=== PATIENT | male | born 1960 | race Caucasian/White ===

== ENCOUNTER → 2018-08-18 13:00 | Outpatient (CLI) | payer OTHER, SELFPAY ==
--- NOTE | 2018-08-18 13:28 | CT_ITS ---
CT lung screening EXAM: CT LUNG LOW DOSE WO CONTRAST HISTORY: 40 pack-year smoking history ITS.REASON: H/O NICOTINE DEPENDENCE ORDERING PHYSICIAN: Zhao Hudson MD PATIENT AGE: 57 years COMPARISON: None TECHNIQUE: The exam was performed on a GE Light Speed [address] scanner using 2.90 mGy CTDI. A low dose helical CT CHEST was performed on a multi-detector scanner. All CT scans at the facility use one or more dose reduction, viz: automated exposure control, ma/kV adjustment per patient size (including targeted exams where dose is matched to indication, i.e. head), or iterative reconstruction technique. The LDCT was performed in a facility that meets the criteria for the screening program. Data regarding this exam was submitted to ACR which is an approved registry. The order for this exam indicates that it came as a result of a lung cancer screening counseling shard decision-making visit that included all the elements required of such a visit including smoking cessation. The radiologist interpreting this exam meets the CMS criteria for the LDCT lung cancer screening program. The exam is reported using the Lung-RADS classification scale and reported to the ACR registry. NOTE: This study was performed for the specific purposes of lung cancer screening and is not an alternative to diagnostic chest CT. RADIATION DOSE: CTDI vol(CT dose Index-volume) = 2.90mG DLP (Dose Length Product) = 108.78 mGcm FINDINGS: COPD with Centrilobular and paraseptal emphysematous changes are present. 10 mm nodular opacity in the minor fissure anteriorly have a plaque-like appearance but with some irregularity on its axial images. Fibrotic change right middle lobe. There is a 10 mm irregular nodular opacity in the left apex which may be related to pulmonary fibrotic change. Fibrotic changes present in the left upper lobe medially are calcified granuloma left upper lobe. Noncalcified nodule present in the lingula at 5 mm. Incidental coronary artery calcifications. Isodensity left kidney which may be due to renal cyst and 19 mm and may be confirmed with ultrasound. IMPRESSION: 1. Lung RADS Category: 4A, mildly suspicious regarding nodular density in the right minor fissure with some irregularity and the 10 mm nodule in the left apex which may be due to scar or developing nodule. 2. Other findings: COPD, centrilobular and paraseptal emphysema, coronary artery calcifications, possible left renal cyst RECOMMENDATIONS: [address] follow-up suggested without and with contrast
== END ==
PROVIDERS: PCP Family Medicine; Visit Provider Family Medicine
DX: Z12.2 Encounter for screening for malignant neoplasm of respiratory organs (principal); Z87.891 Personal history of nicotine dependence

== ENCOUNTER → 2018-09-30 14:18 | Outpatient (CLI) | payer OTHER, SELFPAY ==
--- NOTE | 2018-09-30 14:22 | US_ITS ---
US thyroid HISTORY: ITS.REASON: hypothyroid ORDERING PHYSICIAN: Marcos Meeks MD PATIENT AGE: 57 years Comparison: None FINDINGS: Right lobe: 3.3 x 1.1 x 1.1 cm. Mild heterogeneous echogenicity. 2 mm hypoechoic nodule is present in the mid polar region Left lobe: 3.2 x 1.2 x 1.4 cm. 3 mm hypoechoic nodule in the upper pole. There is heterogeneous echogenicity of the left lobe. Isthmus: Unremarkable IMPRESSION: Heterogeneous echogenicity of both lobes of the thyroid gland with small bilateral hypoechoic nodules which are low suspicion for malignancy
[2018-09-30 17:04] LABS: Free Thyroxine Index 2.2 ug/dL (5.93-13.13); T4 (Thyroxine) 6.7 ug/dl (4.7-13.3); Thyroid Stimulating Hormone 1.15 uIU/ml (0.358-3.740); Triiodothryronine (T3) Uptake 33 % (31-39)
[2018-10-03 03:14] LABS: Thyroid Peroxidase Antibodies 188 IU/mL (0-34)
[2018-10-05 06:22] LABS: Thyroid Stimulating Immunoglob 0.53 IU/L (0.00-0.55)
== END ==
PROVIDERS: PCP Family Medicine; Visit Provider Otolaryngology
DX: E01.0 Iodine-deficiency related diffuse (endemic) goiter (principal); E03.9 Hypothyroidism, unspecified
CPT/HCPCS: 36415; 76536; 82308; 84436; 84443; 84445; 84479; 86376

== ENCOUNTER → 2018-11-18 13:24 | Outpatient (CLI) | payer OTHER, SELFPAY ==
--- NOTE | 2018-11-18 13:49 | CT_ITS ---
CT chest wo/w con HISTORY: Follow-up lung nodules ITS.REASON: PULMONARY NODULES ORDERING PHYSICIAN: Zhao Hudson MD PATIENT AGE: 58 years COMPARISON: 08/18/2018 Technique: Contrast Used:75ml Optiray 350 Axial images were obtained without and with contrast infusion. Sagittal, and coronal reformatted images are also generated and reviewed. All CT scans at the facility use one or more dose reduction, viz: automated exposure control, ma/kV adjustment per patient size (including targeted exams where dose is matched to indication, i.e. head), or iterative reconstruction technique. FINDINGS: No mediastinal or hilar mass or adenopathy. There are coronary artery calcifications best detected on the unenhanced images. There are few scattered small mediastinal, axillary, and periportal lymph nodes not significantly changed. COPD with centrilobular emphysema and scattered areas of pulmonary fibrosis/scarring. New atelectatic changes are present in the right upper lobe medially. Previously noted nodular opacity in the right minor fissure region is not significantly changed. The irregular opacity in the left apex is unchanged. There is an 8 mm noncalcified nodule in the lingula which is unchanged. No new nodules are evident. No abnormal enhancement. 2 cm isodensity left kidney consistent with a renal cyst unchanged. IMPRESSION: 1. Overall no significant change. No change in the right minor fissure and left apical opacities which may be due to scarring. 2. COPD with centrilobular emphysema and scattered areas pulmonary fibrosis/scarring unchanged Recommend 9 month follow-up to confirm one-year stability.
[2018-11-18 13:54] LABS: Blood Urea Nitrogen 12 mg/dL (7-18); Creatinine,Serum 1.05 mg/dL (0.70-1.30); Estimated Glomerular Filt Rate 73 ml/min (>60); GFR (African American) 88 ML/MIN (>60)
== END ==
PROVIDERS: Family Medicine; PCP Family Medicine; Visit Provider Family Medicine
DX: R91.8 Other nonspecific abnormal finding of lung field (principal)
CPT/HCPCS: 36415; 71270; 82565; 84520; Q9967

== ENCOUNTER → 2018-11-29 11:01 | Outpatient (CLI) | payer OTHER, SELFPAY ==
--- NOTE | 2018-11-29 | CA_ITS ---
APPROVED REPORT Exam: Pharmacologic Technologist: Patti Meyers, Ht: 6 ft 1 in Wt: 196 lbs BSA: 2.13 m2 HR: 52 bpm BP: 129/67 mmHg Rhythm: Bradycardia Indications: Chest pain Medical History Medical History: Smoking Medications: Aspirin,,,,, Lexapro,,,,, Vitamin B12,,,,, Synthroid,,,,, Vitamin D3,,,,, ADVAIR,,,,, CloDIPINE,,,,, Cardiac Risk Factors: FHX of CAD Stress Test Details Test: LEXISCAN HR Resting HR: 51 bpm Max Heart Rate (APMHR): 163 bpm Max HR Achieved: 93 bpm Target HR (85% APMHR): 138 bpm % of APMHR: 57 Recovery HR: 74 bpm BP Resting BP: 129.0/67.0 mmHg Max BP: 147.0/86.0 mmHg Recovery BP: 133.0/77.0 mmHg ECG Clinical Exercise duration: 04:03 min Highest Stage Achieved: Exercise capacity: 1.0 METs Stress ECG Conclusion Symptoms: SOA,Malaise,back pain. No chest pain. Arrhythmias/Ectopy: one 1.9 second pause after lexiscan injection. ST-T changes: NS ST-T changes inferiorly and laterally. Unremarkable Lexiscan stress. Myoview images reported separately. Electronically signed by : Zach Dallas, 12/14/2018 11:46:13
--- NOTE | 2018-11-29 11:05 | CA_ITS ---
APPROVED REPORT EXAM: Comprehensive 2D, Doppler, and color-flow Echocardiogram Crane Man: Melia Kirk RDCS Ht: 6 ft 1 in Wt: 198lbs BSA: 2.14 BP: 123/83 mmHg Indications: Chest Pain, Shortness of Breath, Syncope Left Ventricle Left atrium is normal size, left ventricle is normal size, there is no concentric left ventricular hypertrophy, visually estimated ejection fraction 55% with no regional wall motion abnormality. Right Ventricle Right atrium and right ventricular normal size and contractility. Aortic Valve Aortic valve is minimally thickened and fibrosed. There is no aortic stenosis aortic insufficiency. Mitral Valve Mitral valve is grossly normal, there is mild mitral regurgitation Tricuspid Valve Tricuspid valve is grossly normal, there is mild tricuspid regurgitation Pulmonic Valve Pulmonic valve is poorly visualized. Great Vessels Aortic root is normal size. Pericardium No significant pericardial effusion noted. 2D Dimensions LVOT 1.90 cm (M/F) 1.5-2.5 M-Mode Dimensions LA Diam 3.60 cm (1.9-4.0) Ao Diam 3.20 cm (2.0-3.7) AV Cusp 1.50 cm (1.5-2.6) LV Diastology E/A Ratio 1.2 MED E' 10.30 (< 7 cm/sec) E'/MED E' Ratio 8.10 (>14) LAT E' 12.50 (<10 cm/sec) E/LAT E' Ratio 6.70 (>14) Mitral Valve MV E Max Solomon. 83.90 (40-130 cm/s) MV A Velocity 67.60 (40-130 cm/s) E/A Ratio 1.20 Tricuspid Valve TR P. Velocity 255.00 cm/s RAP Estimate 10.00 mmHg RVSP 36.00 mmHg Conclusion 1. Normal left ventricular size, preserved left ventricular systolic function, visually estimated ejection fraction 55% with no regional wall motion abnormality, diastolic parameters are within normal range. 2. Mild mitral and tricuspid regurgitation 3. No significant pericardial effusion noted. Electronically signed by : Jai Grande, 12/02/2018 14:03:32
--- NOTE | 2018-11-29 11:37 | NM_ITS ---
APPROVED REPORT Geriatric Aide: Bryaniscnatalya myocardial perfusion imaging Indication for the test: Chest pain, shortness of breath, palpitations, syncope, fatigue tobacco use and family history. Procedure: Patient received a 0.4 mg of intravenous Lexiscan, resting heart rate was 52 bpm resting blood pressure 129/67, with Lexiscan maximum heart rate achieved was 86 bpm which is less than 85% of the maximum predicted heart rate and the blood pressure was 132/82. Lexiscan patient complained of shortness of breath. Electrocardiogram: Resting electro cardiogram showed sinus bradycardia, with Lexiscan there is less than 1.[address] segment depression noted from the baseline EKG. The EKG portion of the Lexiscan Myoview is nondiagnostic. Cardiac stress and resting SPECT images: Cardiac stress and resting SPECT images were obtained using technetium 99 Myoview 29.6 mCi stress and 10.2 mCi at rest. Gated SPECT for analysis of segmental wall motion and calculation of the ejection fraction also done. Cardiac stress and resting SPECT images show uniform myocardial activity without segmental perfusion abnormality, computer derived ejection fraction is 64% with no regional wall motion abnormality, right ventricle is normal size and contractility. Conclusion 1. The EKG portion of the Lexiscan Myoview is nondiagnostic. 2. No scintigraphic evidence of reversible ischemia seen, computer derived ejection fraction is 64% with no regional wall motion abnormality, right ventricle is normal size and contractility. 3. Normal Lexiscan Myoview study. Electronically signed by : Jai Grande, 12/01/2018 17:23:43
== END ==
PROVIDERS: PCP Family Medicine; Visit Provider Internal Medicine
DX: I25.10 Atherosclerotic heart disease of native coronary artery without angina pectoris (principal); R07.89 Other chest pain; Z72.0 Tobacco use
CPT/HCPCS: 78452; 93017; 93306; A9502; J2785

== ENCOUNTER → 2019-01-05 16:32 | Outpatient (CLI) | payer OTHER, SELFPAY | PROVIDERS: PCP Family Medicine; Visit Provider Nurse Practitioner Family | DX: R53.83 Other fatigue (principal); R06.02 Shortness of breath | CPT/HCPCS: 95806 ==

== ENCOUNTER → 2020-09-04 15:07 | Outpatient (CLI) | payer OTHER, SELFPAY ==
--- NOTE | 2020-09-04 15:11 | CT_ITS ---
PROCEDURE: CT CHEST WO CON CLINICAL INDICATION: PULMONARY NODULE Follow-up pulmonary nodule COMPARISON: CT LUNGSCREEN CT lung screening from 08/18/[address] chest wo/w con from 11/18/2018 TECHNIQUE: Axial images obtained with sagittal and coronal reformats. All CT scans at the facility use one or more dose reduction, viz: automated exposure control, ma/kV adjustment per patient size (including targeted exams where dose is matched to indication, i.e. head), or iterative reconstruction technique. FINDINGS: HEART AND MEDIASTINAL STRUCTURES: No mediastinal or hilar mass or adenopathy. Coronary artery calcifications are present. LUNGS AND PLEURAL SPACES: COPD with centrilobular and paraseptal emphysematous changes. Scattered areas of scarring are once again noted. Nodular opacity in the right minor fissure appears stable. There is evidence of old granulomatous disease. Left apical nodule is stable. No lobar consolidation or collapse. 5 mm nodules present the left lower lobe anteriorly and appears stable. There is mild diffuse bronchial thickening. BONY STRUCTURES: Degenerative changes thoracic spine UPPER ABDOMEN: Unremarkable. ADDITIONAL FINDINGS: No other significant abnormalities. IMPRESSION: Overall stable CT appearance of the chest. COPD with centrilobular and paraseptal emphysematous changes and scattered areas of scarring . No change in the previously described nodular opacities Dictated by: Jace Coelho MD 09/09/2020 14:04 Jace Coelho MD in [place] 09/09/2020 14:04
== END ==
PROVIDERS: PCP Family Medicine; Visit Provider Nurse Practitioner
DX: R91.1 Solitary pulmonary nodule (principal)
CPT/HCPCS: 71250

== ENCOUNTER → 2021-10-31 14:09 | Outpatient (CLI) | payer OTHER, SELFPAY ==
--- NOTE | 2021-10-31 14:14 | CT_ITS ---
FINAL REPORT TECHNIQUE: After the administration of intravenous contrast, axial images through the chest were performed by computed tomography.This study was performed with techniques to keep radiation doses as low as reasonably achievable, (ALARA). Individualized dose reduction techniques using automated exposure control or adjustment of mA and/or kV according to the patient''s size were employed. CLINICAL HISTORY: cough, pulmonary nodule COMPARISON: September 04, 2020 FINDINGS: There is no axillary adenopathy. There is no hilar or mediastinal adenopathy. The heart size is normal. There is no pericardial or pleural effusion. Limited images of the upper abdomen demonstrate a partially visualized 3 cm benign-appearing cyst in the left kidney. There is biapical pleural and parenchymal scarring with a nodular component in the left apex, stable from prior. There is a nodular opacity along the anterior margin of the right minor fissure measuring 1.2 cm, also stable. No new infiltrate or nodule identified. IMPRESSION: Stable chest. Reviewed, Interpreted and Dictated by Alexis Conway MD Transcribed by Lorenzo Woodward Authenticated and [facility]
== END ==
PROVIDERS: PCP Nurse Practitioner; Visit Provider Nurse Practitioner
DX: R05.9 Cough, unspecified (principal); R91.1 Solitary pulmonary nodule
CPT/HCPCS: 71260

== ENCOUNTER → 2021-12-15 14:52 | Outpatient (CLI) | payer OTHER, SELFPAY ==
[2021-12-16 09:09] LABS: Adenovirus,PCR Not Detected (NotDetected); Bordetella Pertussis Not Detected (NotDetected); Chlamydophila Pneumoniae, PCR Not Detected (NotDetected); Coronavirus 229E Not Detected (NotDetected); Coronavirus NL63 Not Detected (NotDetected); Coronavirus OC43 Not Detected (NotDetected); Coronovirus HKU1,PCR Not Detected (NotDetected); Human Metapneumovirus Not Detected (NotDetected); Influenza A, PCR Not Detected (NotDetected); Influenza AH1, 2009 Not Detected (NotDetected); Influenza AH1, PCR Not Detected (NotDetected); Influenza AH3,PCR Not Detected (NotDetected); Influenza B, PCR Not Detected (NotDetected); Mycoplasma Pneumoniae, PCR Not Detected (NotDetected); Parainfluenza 1, PCR Not Detected (NotDetected); Parainfluenza 2, PCR Not Detected (NotDetected); Parainfluenza 3, PCR Not Detected (NotDetected); Parainfluenza 4, PCR Not Detected (NotDetected); Respiratory Syncytial Virus Not Detected (NotDetected); Rhinovirus/Enterovirus Not Detected (NotDetected)
[2021-12-17 02:39] LABS: Coronavirus 19, PCR Detected (NotDetected)
== END ==
PROVIDERS: PCP Nurse Practitioner; Visit Provider Nurse Practitioner
DX: U07.1 COVID-19 (principal)
CPT/HCPCS: 87581; 87632; 87798; C9803; U0003; U0005

== ENCOUNTER → 2022-07-14 11:12 | Outpatient (CLI) | payer OTHER, SELFPAY ==
--- NOTE | 2022-07-14 11:14 | CA_ITS ---
APPROVED REPORT EXAM: Comprehensive 2D, Doppler, and color-flow Echocardiogram Rake Operator: Florence Martinez CRT Ht: 6 ft 1 in Wt: 238lbs BSA: 2.32 BP: 110/80 mmHg Indications: COPD, Murmur, Shortness of Breath, Hyperlipidemia, smoker 2D Dimensions LVOT 1.90 cm (M/F) 1.5-2.5 LA Volume 51.40 mL LA Volume Index 21.70 mL/m2 (M/F) 16-34 M-Mode Dimensions RVDd 2.73 cm (0.9-2.6) LA Diam 3.65 cm (1.9-4.0) LVDd 4.49 cm (3.5-5.7) Ao Diam 4.48 cm (2.0-3.7) LVDs 3.17 cm (3.5-5.7) IVSd 2.01 cm (0.6-1.1) PWd 0.96 cm (0.6-1.1) EF (Teich) 56.50% EPSs 2.60 cm FS 29.40% EDV (Teich) 92.00 mL ESV (Teich) 40.00 mL LV Diastology E Decel Time 150.00 (160-240 msec) E/A Ratio 0.94 MED E' 6.60 (< 7 cm/sec) MED A' 8.60 cm/s E'/MED E' Ratio 9.61 (>14) LAT E' 10.80 (<10 cm/sec) LAT A' 10.40 cm/s E/LAT E' Ratio 5.87 (>14) Aortic Valve AO Peak GR. 9.40 mmHg Mitral Valve MV A Velocity 68.00 (40-130 cm/s) E/A Ratio 0.94 MV Decel. Time 150.00 (160-240 ms) Pulmonary Valve PV Peak Velocity 106.00 (50-150 cm/s) Tricuspid Valve TR P. Velocity 219.00 cm/s RAP Estimate 10.00 mmHg RVSP 29.10 mmHg Left Ventricle Left atrium is mildly enlarged, left ventricle normal size mild concentric left ventricular hypertrophy, estimated ejection fraction 55% with no regional wall motion abnormality, grade 1 diastolic dysfunction seen without tissue Doppler evidence of raise left atrial pressure. Right Ventricle Right atrium and right ventricular mildly enlarged with normal contractility. Aortic Valve Aortic valve is minimally thickened and fibrosed there is no aortic stenosis or aortic insufficiency. Mitral Valve Mitral valve is grossly normal, there is trace mitral regurgitation. Tricuspid Valve Tricuspid valve grossly normal, there is trace tricuspid regurgitation, tricuspid regurgitation jet velocity is inadequate for calculation of the right ventricular systolic pressure. Pulmonic Valve Pulmonic valve is poorly visualized. Great Vessels Aortic root is normal size. Inferior vena cava is poorly visualized. 1. Pericardium No significant pericardial effusion noted. Conclusion 1. Mild biatrial enlargement, normal left ventricular size, mild concentric left ventricular hypertrophy, estimated ejection fraction 55% with no regional wall motion abnormality, grade 1 diastolic dysfunction seen without tissue Doppler evidence of late left atrial pressure. 2. Mildly enlarged right ventricle with normal contractility. 3. Trace mitral and tricuspid regurgitation. 4. No significant pericardial effusion noted. 5. Inferior vena cava is poorly visualized. Electronically signed by : Jai Grande MD 07/15/2022 05:34:00
[2022-07-14 13:24] LABS: Alanine Aminotransferase 41 U/L (12-78); Albumin Level 3.9 g/dl (3.5-5.0); Albumin/Globulin Ratio 1.3 (1.1-1.8); Alkaline Phosphatase 91 U/L (38-126); Anion Gap 11.5 mEq/L (5-15); Aspartate Amino Transferase 31 U/L (17-59); Bilirubin,Total 0.6 mg/dl (0.2-1.3); Blood Urea Nitrogen 18 mg/dl (9-20); Calcium 8.5 mg/dl (8.4-10.2); Carbon Dioxide 26 mmol/L (22.0-30.0); Chloride 102 mmol/L (98-107); Chol/HDL Ratio 2.8 (1-3.5); Cholesterol 124 mg/dl (140-200); Estimated Glomerular Filt Rate 86 ml/min (>60); GFR (African American) 104 ML/MIN (>60); Glucose 90 mg/dl (74-100); HDL Cholesterol 45 mg/dl (40-60); Potassium 4.5 mmoL/L (3.5-5.1); Sodium 135 mmol/L (136-145); Total Protein,Serum 6.9 g/dl (6.3-8.2); Triglycerides 114 mg/dl (30-150); VLDL Cholesterol 23 mg/dL (0-40)
[2022-07-14 13:40] LABS: Free T4 (Free Thyroxine) 0.87 ng/dl (0.78-2.19)
[2022-07-14 13:54] LABS: Thyroid Stimulating Hormone < 0.02 uIU/mL (0.465-4.68)
[2022-07-14 14:13] LABS: Vitamin B12 436 pg/mL (239-931)
== END ==
PROVIDERS: PCP Family Medicine; Visit Provider Nurse Practitioner
DX: R01.1 Cardiac murmur, unspecified (principal); E03.9 Hypothyroidism, unspecified; E53.8 Deficiency of other specified B group vitamins; E55.9 Vitamin D deficiency, unspecified; E78.5 Hyperlipidemia, unspecified; F41.8 Other specified anxiety disorders; K21.9 Gastro-esophageal reflux disease without esophagitis
CPT/HCPCS: 36415; 80053; 80061; 82306; 82607; 83036; 84439; 84443; 93306

== ENCOUNTER → 2022-07-20 12:45 | Outpatient (CLI) | payer OTHER, SELFPAY ==
--- NOTE | 2022-07-20 13:25 | PC.NURSE ---
PFT and 6 Minute Walk Test completed without incident. Albuterol 0.083% given via HHN, per protocol, Pt tolerated tx well.
== END ==
PROVIDERS: PCP Family Medicine; Visit Provider Nurse Practitioner Family
DX: R06.02 Shortness of breath (principal)
CPT/HCPCS: 94060; 94618; 94726; 94729

== ENCOUNTER → 2022-07-27 07:59 | Outpatient (CLI) | payer OTHER, SELFPAY ==
[2022-07-27 08:45] VITALS: BP 136/79; PULSE 56; RESP 18; O2SAT 96
[2022-07-27 09:00] VITALS: BP 129/62; PULSE 67; RESP 18; O2SAT 94
== END ==
PROVIDERS: PCP Family Medicine; Visit Provider Nurse Practitioner Family
DX: R06.02 Shortness of breath (principal); I20.8 Other forms of angina pectoris; E78.5 Hyperlipidemia, unspecified; Z72.0 Tobacco use
CPT/HCPCS: 75574; Q9967

== ENCOUNTER → 2023-01-25 09:49 | Outpatient (CLI) | payer OTHER, SELFPAY ==
[2023-01-25 18:31] LABS: Basophils # 0.1 K/mm3 (0-0.2); Eosinophils # 0.2 K/mm3 (0.0-0.4); Eosinophils % 3.3 % (0.1-12.0); Hematocrit 43.8 % (42.0-52.0); Hemoglobin 13.6 g/dL (14.1-18.0); Lymphocytes # 1.8 K/mm3 (0.7-4.5); Lymphocytes % 29.9 % (10-50); Mean Corpuscular Hemoglobin 28.1 pg (27.0-31.2); Mean Corpuscular Volume 90.4 fl (80-94); Monocytes # 0.3 K/mm3 (0.1-1.0); Monocytes % 5.4 % (1.7-9.3); Neutrophils # 3.5 K/mm3 (1.8-7.8); Neutrophils % 60.4 % (37.0-80.0); Platelet Count 278 K/mm3 (142-424); Red Blood Count 4.85 M/mm3 (4.60-6.20); Red Cell Distribution Width 15.3 % (11.5-17.5); White Blood Count 5.8 K/mm3 (4.8-10.8)
[2023-01-25 18:49] LABS: Alanine Aminotransferase 26 U/L (12-78); Albumin/Globulin Ratio 1.1 (1.1-1.8); Alkaline Phosphatase 75 U/L (38-126); Aspartate Amino Transferase 24 U/L (17-59); Bilirubin,Total 0.7 mg/dl (0.2-1.3); Blood Urea Nitrogen 10 mg/dl (9-20); Calcium 8.9 mg/dl (8.4-10.2); Carbon Dioxide 28 mmol/L (22.0-30.0); Chloride 106 mmol/L (98-107); Chol/HDL Ratio 9.3 (1-3.5); Cholesterol 252 mg/dl (140-200); Estimated Glomerular Filt Rate 86 ml/min (>60); GFR (African American) 104 ML/MIN (>60); Globulin 3.5 g/dL (1.3-3.2); Glucose 92 mg/dl (74-100); HDL Cholesterol 27 mg/dl (40-60); Sodium 141 mmol/L (136-145); Total Protein,Serum 7.5 g/dl (6.3-8.2); Triglycerides 212 mg/dl (30-150); VLDL Cholesterol 42 mg/dL (0-40)
[2023-01-25 19:00] LABS: Direct LDL Cholesterol 161.32 mg/dL (100-129)
[2023-01-25 19:06] LABS: Free T4 (Free Thyroxine) 0.94 ng/dl (0.78-2.19)
[2023-01-25 19:20] LABS: Thyroid Stimulating Hormone 3.35 uIU/mL (0.465-4.68)
[2023-01-25 19:39] LABS: Vitamin B12 352 pg/mL (239-931)
[2023-01-25 19:47] LABS: Hemoglobin A1C 5.5 % (4.0-6.0)
[2023-01-25 20:19] LABS: 25-OH Vitamin D, Total 42.8 ng/mL (30-100)
[2023-01-25 20:22] LABS: Microalbumin/Creatinine Ratio 7.7
[2023-01-25 20:23] LABS: Creatinine,Urine Random 168 mg/dL (Not Estab.)
== END ==
LOC: LAB.DROPOF 01-26 09:50
PROVIDERS: PCP Nurse Practitioner; Visit Provider Nurse Practitioner
DX: E03.9 Hypothyroidism, unspecified (principal); E53.8 Deficiency of other specified B group vitamins; E55.9 Vitamin D deficiency, unspecified; E78.5 Hyperlipidemia, unspecified; I25.10 Atherosclerotic heart disease of native coronary artery without angina pectoris; K21.9 Gastro-esophageal reflux disease without esophagitis; R73.01 Impaired fasting glucose; Z79.899 Other long term (current) drug therapy
CPT/HCPCS: 80053; 80061; 82043; 82306; 82570; 82607; 83036; 84439; 84443; 85025

== ENCOUNTER 2023-12-28 12:16 | Outpatient (CLI) | payer SELFPAY ==
[2023-12-28 19:08] LABS: Alanine Aminotransferase 34 U/L (12-78); Albumin Level 3.9 g/dl (3.5-5.0); Albumin/Globulin Ratio 1.2 (1.1-1.8); Alkaline Phosphatase 59 U/L (38-126); Anion Gap 11.3 mEq/L (5-15); Aspartate Amino Transferase 30 U/L (17-59); Bilirubin,Total 0.9 mg/dl (0.2-1.3); Blood Urea Nitrogen 11 mg/dl (9-20); Calcium 8.8 mg/dl (8.4-10.2); Carbon Dioxide 27 mmol/L (22.0-30.0); Chloride 106 mmol/L (98-107); Estimated Glomerular Filt Rate 86 ml/min (>60); GFR (African American) 103 ML/MIN (>60); Globulin 3.3 g/dL (1.3-3.2); Glucose 83 mg/dl (74-100); Potassium 4.3 mmoL/L (3.5-5.1); Sodium 140 mmol/L (136-145); Total Protein,Serum 7.2 g/dl (6.3-8.2)
== END 2023-12-28 23:59 | disposition home or self-care (01) ==
LOC: LAB.DROPOF 12-29 12:17
PROVIDERS: PCP Nurse Practitioner; Visit Provider Nurse Practitioner
DX: G47.62 Sleep related leg cramps (principal)
CPT/HCPCS: 80053

== ENCOUNTER 2024-07-04 11:55 | Outpatient (CLI) | payer SELFPAY ==
[2024-07-04 19:56] LABS: Basophils # 0.1 K/mm3 (0-0.2); Basophils % 1.5 % (0.1-2.0); Eosinophils # 0.3 K/mm3 (0.0-0.4); Eosinophils % 5.2 % (0.1-12.0); Hematocrit 42.5 % (42.0-52.0); Hemoglobin 13.7 g/dL (14.1-18.0); Lymphocytes # 1.3 K/mm3 (0.7-4.5); Lymphocytes % 25.1 % (10-50); Mean Corpuscular HGB Conc 32.2 g/dL (31.8-35.4); Mean Corpuscular Hemoglobin 30.5 pg (27.0-31.2); Mean Corpuscular Volume 94.7 fl (80-94); Mean Platelet Volume 10.7 fl (7.4-10.4); Monocytes # 0.4 K/mm3 (0.1-1.0); Monocytes % 7.7 % (1.7-9.3); Neutrophils # 3.1 K/mm3 (1.8-7.8); Neutrophils % 60.1 % (37.0-80.0); Platelet Count 227 K/mm3 (142-424); Red Blood Count 4.49 M/mm3 (4.60-6.20); Red Cell Distribution Width 13.9 % (11.5-17.5); White Blood Count 5.2 K/mm3 (4.8-10.8)
[2024-07-04 21:36] LABS: Alanine Aminotransferase 31 U/L (12-78); Albumin Level 4.1 g/dl (3.5-5.0); Albumin/Globulin Ratio 1.5 (1.1-1.8); Alkaline Phosphatase 56 U/L (38-126); Anion Gap 10.2 mEq/L (5-15); Aspartate Amino Transferase 30 U/L (17-59); Blood Urea Nitrogen 8 mg/dl (9-20); Calcium 8.6 mg/dl (8.4-10.2); Carbon Dioxide 27 mmol/L (22.0-30.0); Chloride 105 mmol/L (98-107); Estimated Glomerular Filt Rate 98 ml/min (>60); GFR (African American) 119 ML/MIN (>60); Globulin 2.8 g/dL (1.3-3.2); Glucose 108 mg/dl (74-100); Potassium 4.2 mmoL/L (3.5-5.1); Sodium 138 mmol/L (136-145); Total Protein,Serum 6.9 g/dl (6.3-8.2)
[2024-07-04 22:08] LABS: Thyroid Stimulating Hormone 5.62 uIU/mL (0.465-4.68)
== END 2024-07-04 23:59 | disposition home or self-care (01) ==
LOC: LAB.DROPOF 07-05 08:51
PROVIDERS: PCP Family Medicine; Visit Provider Family Medicine
DX: E03.9 Hypothyroidism, unspecified (principal); J45.909 Unspecified asthma, uncomplicated; R60.0 Localized edema
CPT/HCPCS: 80053; 84443; 85025

== ENCOUNTER 2024-11-13 15:52 | Outpatient (CLI) | payer SELFPAY ==
--- OUTSIDE RECORDS SUMMARY | 2024-11-14 14:31 | XMS_ITS | Clinical Summary ---
Author Organization [facility] [place] Address [address] [place] [address] Phone Care Team Providers Care Heel Caser Name Role Phone Juan Jackson Primary Care Provider Allergies Active Allergy Reactions Criticality Noted Date Comments Aloe Vera Hives 10/09/2017 Codeine 12/09/2011 Medications escitalopram oxalate (LEXAPRO) 20 mg Oral Tablet Take 20 mg by mouth daily. Active clonazePAM (KLONOPIN) 1 mg Oral Tablet Take 1 mg by mouth 3 times daily. Active LEVOthyroxine (SYNTHROID) 50 mcg Oral Tablet Take 50 mcg by mouth daily. 2 03/18/2018 Active oxybutynin (DITROPAN) 5 mg Oral Tablet Take 5 mg by mouth every 8 hours as needed. 1 04/07/2018 Active tamsulosin (FLOMAX) 0.4 mg Oral Capsule Take 0.4 mg by mouth nightly. 1 04/06/2018 Active oxyCODONE-acetam inophen (PERCOCET) 5-325 mg Oral Tablet Take 1-2 Tabs by mouth every 6 hours as needed for Acute Pain (R52). 24 Tab 04/11/2018 Active senna-docusate (SENOKOT-S) 8.6-50 mg Oral Tablet Take 2 Tabs by mouth nightly. 30 Tab 04/11/2018 Active pantoprazole (PROTONIX) 40 mg Oral Tablet, Delayed Release (E.C.) Take 1 Tab by mouth daily. 30 Tab 04/12/2018 Active acetaminophen (TYLENOL) 500 mg Oral Tablet Take 1 Tab by mouth every 4 hours as needed for Pain. 2 04/12/2018 Active Ibuprofen 200 mg Oral Capsule Take 400 mg by mouth every 6 hours as needed for Pain. 120 Cap 04/12/2018 Active Phenazopyridine (AZO STANDARD) 97.5 mg Oral Tablet Take 1 Tab by mouth 3 times daily as needed (burning). 04/12/2018 Active Active Problems Problem Noted Date Diagnosed Date Right ureteral calculus 04/10/2018 Status post placement of ureteral stent 04/10/20 18 Acute cystitis with hematuria 04/10/2018 Tobacco abuse 04/10/2018 Anxiety 04/10/2018 Mood disorder 04/10/2018 Immunizations Immunization Administration Dates Next Due Tdap 12/09/2011 Medical History Medical History Date Comments Anxiety Tobacco abuse Nephrolithiasis Social History Tobacco Use Types Packs/Day Years Used Date Smoking Tobacco: Every Day Cigarettes 0.5 47.6 Started: 04/19/1977 Smokeless Tobacco: Never Tobacco Cessation:Ready to Q uit: No Alcohol Use Standard Drinks/Week Comments No 0 (1 standard drink = 0.6 oz pur e alcohol) Sex and Gender Information Value Date Recorded Sex Assigned at Not on file Legal Sex Male 11:22 PM EDT Gender Identity Not on file Sexual Orientation Not on file Obstetrics History Last Filed Vital Signs Vital Sign Reading Time Taken Comments Blood Pressure 126/65 04/12/2018 8:59 AM EST Pulse 56 04/12/2018 8:59 AM EST Temperature 36.4 C (97.6 F) 04/12/2018 8:59 AM EST Respiratory Rate 18 04/12/2018 8:59 AM EST Oxygen Saturation 96% 04/12/2018 8:59 AM EST Inhaled Oxygen Concentration - - Weight 88.5 kg (195 lb) 04/10/2018 12:05 AM EST Height 185.4 cm (6' 1 ) 04/10/2018 12:05 AM EST Body Mass Index 25.73 04/10/2018 12:05 AM EST Plan of Treatment Health Maintenance Due Date Last Done Comments Annual Wellness Exam 1963 Hepatitis C Screening 11/18/1979 Cologuard 2006 FIT 2006 Sigmoidoscopy 2006 Virtual Colonography 2006 Zoster (1 of 2) 11/18/2011 Colon Cancer Screening 07/11/2019 Colonoscopy 07/11/2019 07/10/2009 Pneumococcal Vaccine 50+ (2 of 2 - PCV) 02/07/2020 02/06/2019 Low Dose Lung Cancer Screening 09/04/2021 09/04/2020 DTaP/TDaP/Td (2 - Td or Tdap) 12/08/2021 12/09/2011 COVID-19 Vaccine (3 - 2023-2 5 season) 2023 01/18/2021, 12/28/2020 Influenza Vaccine (#1) 2024 Hepatitis B Vaccine Aged Out No longe r eligible based on patient's age to complete this topic Meningococcal B Vaccine Aged Out No l onger eligible based on patient's age to complete this topic Procedures Procedure Name Priority Date/Time Associated Diagnosis Comments [facility]ED COLONOSCOPY Routine 07/10/2009 12:0 0 AM EDT from Last 3 Months or Most Recently Relevant to Health Maintenance Results * GMED COLONOSCOPY (07/10/2009 12:00 AM EDT) 07/10/2009 Impressions [facility] - 05/16/2012 2:26 PM EST Grade 1 internal hemorrhoids Polyp at 30cm in the sigmoid colon (polypectomy) Diverticulosis of the sigmoid colon and descending colon Otherwise normal colonoscopy to cecum [facility]ative [facility] - 05/16/2012 2:26 PM EST Performing Provider: Ignacio Cunningham M.D. Referring Provider: Brown Jackson M.D Ignacio Cunningham MD GI PROCEDURE ORDERABLES Calli ervin Result [facility] [address] [place] [id number] from Last 3 Months or Most Recently Relevant to Health Maintenance Insurance [employer] WORK[employer] Advance Directives For more information, please contact: [phone] * Full Code (Latest Code Status on File) Date Activated Date Inactivated Comments 04/10/2018 2:52 AM 04/12/2018 7:20 PM Care Teams Heel Caser Relationship Specialty Start Date End Date Juan Jackson [address] [place] [id number] PCP - General 07/01/09
--- OUTSIDE RECORDS SUMMARY | 2024-11-14 14:31 | XMS_ITS | Clinical Summary ---
Author Organization [facility] Address [facility] [place] [address] Care Team Providers Care Director Of Admissions Name Role Phone Unavailable Primary Care Provider Unavailabl e Source Comments This information has been disclosed to you from confidential records protectedfrom disclosure by state law. You shall make no further disclosure of thisinformation without the specific, written, and informed release of theindividual to whom it pertains, or as otherwise permitted by law. A generalauthorization for the release of medical or other information is not sufficientfor the purposes of therelease of HIV test results or diagnoses. [id number] Social History Tobacco Use Types Packs/Day Years Used Date Smoking Tobacco: Never Assessed Sex and Gender Information Value Date Recorded Sex Assigned at Not on file Legal Sex Male 4:14 PM EST Gender Identity Not on file Sexual Orientation Not on file Plan of Treatment Not on file
--- OUTSIDE RECORDS SUMMARY | 2024-11-14 14:31 | XMS_ITS | Encounter Summary ---
Author Organization [facility] Address [address] [place] [address] Care Team Providers Care Director Stars Name Role Phone Fermin Jackson MD Primary Care Provider [phone] Encounter Details Date Type Department Care Team (Late st Contact Info) Description 09/04/2020 Orders Only External Location [address] [place] [address] Provider, External Social History Tobacco Use Types Packs/Day Years Used Date Smoking Tobacco: Every Day Sex and Gender Information Value Date Recorded Sex Assigned at Not on file Legal Sex Male 7:31 PM EDT Gender Identity Not on file Sexual Orientation Not on file documented as of this encounter Plan of Treatment Not on file documented as of this encounter Procedures Procedure Name Priority Date/Time Associated Diagnosis Comments CT CHEST WO IV CONTRAST 09/04/2020 3:16 PM EDT documented in this encounter Results * CT Chest wo IV Contrast (09/04/2020 3:16 PM EDT) Anatomical Region Laterality Modality Chest Computed Tomogra phy 09/04/2020 3:16 PM EDT us External Provider IMG CT PROCEDURES Final Result documented in this encounter Visit Diagnoses Not on filedocumented in this encounter Care Teams Director Stars Relationship Specialty Start Date End Date Fermin Jackson MD [address] [place] [address] PCP - General 08/30/20 documented as of this encounter
--- OUTSIDE RECORDS SUMMARY | 2024-11-14 14:31 | XMS_ITS | Clinical Summary ---
Author Organization [facility] Address [address] [place] [address] Care Team Providers Care Mattress Maker Name Role Phone Fermin Jackson MD Primary Care Provider [phone]- [phone] Immunizations Immunization Administration Dates Next Due Pneumococcal Polysaccharide PPV23 02/06/2019 Family History Medical History Relation Name Comments Lung cancer Father Relation Name Status Comments Father Social History Tobacco Use Types Packs/Day Years Used Date Smoking Tobacco: Every Day Sex and Gender Information Value Date Recorded Sex Assigned at Not on file Legal Sex Male 7:31 PM EDT Gender Identity Not on file Sexual Orientation Not on file Last Filed Vital Signs Vital Sign Reading Time Taken Comments Blood Pressure 119/77 02/06/2019 12:33 PM EDT Pulse 53 02/06/2019 12:33 PM EDT Temperature 36.4 C (97.5 F) 02/06/2019 12:33 PM EDT Respiratory Rate - - Oxygen Saturation - - Inhaled Oxygen Concentration - - Weight 89.8 kg (197 lb 15.9 oz) 019 12:33 PM EDT Height 185.4 cm (6' 1 ) 02/06/2019 12:3 3 PM EDT Body Mass Index 26.12 02/06/2019 12:33 PM EDT Plan of Treatment Health Maintenance Due Date Last Done Comments [facility]-Depression Screening 1961 [facility]-Infant/Child/Adol SDOH Screenings 1960 [facility]- SDOH Screenings 11/18/1979 [facility]-Adult SDOH Screenings 11/18/1979 CT Colonography 2006 Colonoscopy 2006 FIT-DNA 2006 FIT 2006 FOBT 2006 Sigmoidoscopy 2006 [facility]-Colorectal Cancer Screening 2006 [facility]-Zoster Vaccines (1 of 2) 11/18/2011 [facility]-Pneumococcal Vaccine: 50 + Years (2 of 2 - PCV) 02/07/2020 02/06/2019 [facility]-DTaP,Tdap,and Td Vaccine s (2 - Td or Tdap) 12/08/2021 12/09/2011 [id number] Vaccine (3 - season) 2023 01/18/2021, 12/28/2020 [facility]-Influenza Vaccine (#1) 2024 [facility]-RSV Vaccine: 60+ Years o r (1 - 1-dose 75+ series) 2036 HPV Vaccines Aged Out No longer eligi ble based on patient's age to complete this topic [facility]-HIB Vaccines Aged Out No longer e ligible based on patient's age to complete this topic [facility]-Hepatitis A Vaccines Aged Out No longer eligible based on patient's age to complete this topic [facility]-IPV Vaccines Aged Out No longer e ligible based on patient's age to complete this topic [facility]-Rotavirus Vaccines Aged Out No lo nger eligible based on patient's age to complete this topic Insurance [employer] [facility] MEDICAID Care Teams Mattress Maker Relationship Specialty Start Date End Date Fermin Jackson MD [address] [place] [address] PCP - General 08/30/20
== END 2024-11-13 23:59 | disposition home or self-care (01) ==
LOC: LAB.DROPOF 11-14 14:29
PROVIDERS: PCP Nurse Practitioner; Visit Provider Nurse Practitioner
DX: R10.9 Unspecified abdominal pain (principal); R31.9 Hematuria, unspecified
CPT/HCPCS: 87086